=== PATIENT | male | born 1980 | race Caucasian/White ===

== ENCOUNTER 2023-08-12 17:03 | Emergency (ER) | payer OTHER, SELFPAY ==
[2023-08-12 17:05] VITALS: BP 138/105; PULSE 70; RESP 19; TEMP 36.6; O2SAT 95; BMI 39.9
[2023-08-12 17:12] VITALS: BP 138/105; PULSE 89; O2SAT 96
[2023-08-12 17:45] VITALS: BP 146/79; PULSE 81; O2SAT 95
--- NOTE | 2023-08-12 18:00 | ED_ITS ---
Discharge Plan Disposition Patient Disposition: Home, Self-Care Condition: Good Prescriptions Prescriptions: New cefuroxime axetil 500 mg tablet 500 mg PO BID 10 Days Qty: 20 0RF No Action cyclobenzaprine 10 MG tablet 10 mg PO TID PRN (Reason: Muscle Spasm) Qty: 9 0RF methylprednisolone [Medrol (Alejandro)] 4 MG tablets,dose pack 4 mg PO DIRECTED Qty: 21 0RF tamsulosin 0.4 MG capsule 0.4 mg PO HS Qty: 10 0RF hydrocodone-acetaminophen 1 TAB tablet 1 tab PO Q6HP PRN (Reason: Moderate To Severe Pain) Qty: 6 0RF Referrals Follow up/Referrals: Haresh Lopez [Primary Care Provider] - See instructions Activity Restrictions/Add. Instructions Additional Instructions/Restrictions: You were evaluated in the emergency department today. Please poultry picker your prescription for cefuroxime and take as prescribed. You will need to call Dr. Jarvis's office in the morning as soon as they open to be seen in the morning in clinic. Advise the office that he told you he would see you in the morning to determine whether or not you would need a stent placed tomorrow. . Do not eat or drink anything after midnight. He is only in clinic until 12pm tomorrow. Return to the emergency department for new or worsening symptoms. Clinical Impressions Clinical Impression: Left flank pain, Post-op pain, Ureterolithiasis Instructions Patient Instructions: DI for Kidney Stones, DI for Acute Pain -- Adult, DI for Ureterolithotomy Discharge ED Provider: Sailaja Pham General Adult HPI General Chief complaint: PAIN Stated complaint: back pain- surg to shock and stent kidney Time Seen by Provider: 08/12/23 17:11 Mode of Arrival: Ambulatory Source of Information: Patient Limitations: No Limitations Description of Symptoms (Recalled from ER Triage Doc. by RN): 43 yo M presents to ED with c/o back pain related to kidneys. pt had procedure done at [facility] to break up kidney stones yesterday. pt reports pain began this am when he woke up History of Present Illness HPI narrative: This patient is a 43-year-old male with a history of ureterolithiasis presenting to the emergency department for evaluation with concern for severe back/abdominal pain. Patient reports that yesterday, he had lithotripsy and stenting at [facility] for 20 mm kidney stones. He was discharged on oxycodone, but this morning he woke up in severe pain. He has not been able to get it under control. He is also had nausea and vomiting. No fevers, chills, or other concerns noted, but he does note difficulty urinating. Of note, he has solitary kidney. Related Data Previous Rx's Medication Instructions Recorded cyclobenzaprine 10 mg tablet 10 mg PO TID PRN Muscle Spasm #9 05/22/18 tabs methylprednisolone 4 mg tablets in 4 mg PO DIRECTED ##21 05/22/18 a dose pack (Medrol (Alejandro)) hydrocodone 5 mg-acetaminophen 325 1 tab PO Q6HP PRN Moderate To 06/11/18 mg tablet Severe Pain #6 tabs tamsulosin 0.4 mg capsule 0.4 mg PO HS #10 caps 06/11/18 cefuroxime axetil 500 mg tablet 500 mg PO BID 10 days #20 tabs 08/12/23 Allergies Allergy/AdvReac Type Severity Reaction Status Date / Time No Known Allergies Allergy Verified 05/22/18 15:57 [facility] Disclaimer: The information contained in this section may have been updated after the patient was seen, as this information can be updated by other users. Social History Smoking Status: Never smoker alcohol intake: never current occupational status: other Travel in the last 8 weeks: None ROS Obtained: Yes All systems reviewed & no additional complaints except as documented Physical Exam General General appearance: alert and in no apparent distress Head Head exam: atraumatic and normocephalic Eye Eye exam: Present normal appearance, PERRL and EOMI ENT ENT exam: Present normal exam, normal oropharynx, mucous membranes moist and normal external ear exam Neck Neck exam: Present normal inspection, full ROM and trachea midline; Absent tenderness Chest Chest inspection: Present normal inspection and symmetric chest wall rise; Absent tenderness Respiratory Respiratory exam: Present normal lung sounds bilaterally; Absent respiratory distress, wheezes, stridor or accessory muscle use Cardiovascular Cardiovascular exam: Present regular rate and normal rhythm Abdominal Exam Abdominal exam: Present soft, tenderness (Left-sided abdominal pain) and normal bowel sounds; Absent distention, guarding, rebound or rigidity Extremities Exam Extremities exam: Present normal inspection, full ROM and normal capillary refill; Absent tenderness or edema Back Exam Back exam: Present full ROM, tenderness and CVA tenderness (L) Neurological Exam Neurological exam: Present alert, oriented X3, CN II-XII intact and normal gait; Absent motor sensory deficit Psychiatric Psychiatric exam: Present normal affect and normal mood Skin Skin exam: Present warm and dry Medical Decision Making Medical Records Medical records reviewed: Yes I reviewed the patient's medical records. Nicholas Inquiry Pt receiving controlled substance: No Vital Signs: 08/12/23 17:05 08/12/23 17:12 08/12/23 17:45 Temperature 97.9 F Temperature Source Oral Pulse Rate 89 81 Pulse Rate [Left Radial] 70 Respiratory Rate 19 Blood Pressure 138/105 H 146/79 H Blood Pressure [Right Arm] 138/105 H Blood Pressure Mean [Right Arm] 116 Blood Pressure Source Blood Pressure Position 02 Sat by Pulse Oximetry 95 96 95 Oxygen Delivery Method Room Air Room Air 08/12/23 20:59 Temperature 98.1 F Temperature Source Oral Pulse Rate 83 Pulse Rate [Left Radial] Respiratory Rate 16 Blood Pressure 108/69 L Blood Pressure [Right Arm] Blood Pressure Mean [Right Arm] Blood Pressure Source Automatic Cuff Blood Pressure Position Supine 02 Sat by Pulse Oximetry Oxygen Delivery Method Room Air Lab Data Lab results reviewed: Yes I reviewed the patient's lab results. Lab Results 08/12/23 17:20: WBC 14.2 H, RBC 5.54, Hgb 15.3, Hct 44.5, MCV 80.5, MCH 27.6, MCHC 34.4, RDW 14.4, Plt Count 236, MPV 8.7, Neut % (Auto) 67.1, Lymph % (Auto) 25.0, Lares % (Auto) 5.6, Eos % (Auto) 1.5, Baso % (Auto) 0.8, Neut # (Auto) 9.5 H, Lymph # (Auto) 3.5, Lares # (Auto) 0.8, Eos # (Auto) 0.2, Baso # (Auto) 0.1, Sodium 142, Potassium 3.9, Chloride 108 H, Carbon Dioxide 23, Anion Gap 14.9, BUN 19, Creatinine 1.20, Estimated Creat Clear 140, Estimated GFR 66, Est GFR ( Amer) 80, Glucose 123 H, Calcium 9.0, Total Bilirubin 0.5, AST 38, ALT 58, Alkaline Phosphatase 115, Total Protein 7.3, Albumin 4.3, Globulin 3.0, Albumin/Globulin Ratio 1.4, Lipase 67 08/12/23 19:19: Urine Color Brown, Urine Appearance Cloudy, Urine pH 6.5, Ur Specific [place] 1.025, Urine Protein 3+, Urine Glucose (UA) Negative, Urine Ketones 1+, Urine Blood 3+, Urine Nitrate Positive, Urine Bilirubin Negative, Urine Urobilinogen 2.0, Ur Leukocyte Esterase 1+ A, Urine RBC Tntc, Urine WBC 10-20, Urine Bacteria Trace 08/12/23 17:20 08/12/23 17:20 Orders (Tests/Meds): ED MEDICATIONS Discontinued Medications Generic Name Dose Route Start Last Admin Trade Name Channingq PRN Reason Stop Dose Admin Lactated Ringer's 1,000 mls @ 999 mls/hr 08/12/23 17:33 08/12/23 18:20 Lactated Ringer's 1000 Ml Bag IV 08/12/23 18:33 999 mls/hr .Q1H1M ONE Administration Ceftriaxone Sodium 2 gm/ 100 mls @ 200 mls/hr 08/12/23 19:55 08/12/23 20:15 Sodium Chloride IV 08/12/23 20:24 200 mls/hr ONCE ONE Administration Ketorolac Tromethamine 30 mg 08/12/23 17:10 08/12/23 18:12 Ketorolac 30mg/Ml Vial IV 08/12/23 17:11 30 mg ONCE ONE Administration Morphine Sulfate 4 mg 08/12/23 17:33 08/12/23 18:13 Morphine 4mg/Ml Syringe IV 08/12/23 17:34 4 mg ONCE ONE Administration Ondansetron HCl 4 mg 08/12/23 17:33 08/12/23 18:12 Ondansetron 4mg/2ml Vial IV 08/12/23 17:34 4 mg ONCE ONE Administration ORDERS Category Date Time Status CT abdomen pelvis wo con Stat Cat Scan 08/12/23 18:24 Completed Complete Blood Count Auto Diff Stat Lab 08/12/23 17:20 Completed Comprehensive Metabolic Panel Stat Lab 08/12/23 17:20 Completed Lipase Stat Lab 08/12/23 17:20 Completed Urinalysis and Microscopic Stat Lab 08/12/23 19:19 Completed Blood Culture Stat Micro 08/12/23 20:50 Received Urine Culture Stat Micro 08/12/23 19:21 Received Medical Decision Narrative: In summary, this patient is a 43-year-old male presenting to the Emergency Department for evaluation of severe pain after recent stenting and lithotripsy yesterday at [facility]. Differential diagnoses considered include but are not limited to displacement, postoperative infection, ureteral colic, cystitis, pyelonephritis, sepsis. Ruling out the most morbid conditions drove assessment. On exam, the patient is very uncomfortable appearing and tearful. Vitals are reassuring on cardiac telemetry. He does have abdominal and CVA tenderness. CBC, CMP, lipase, urinalysis, urine culture, and CT abdomen and pelvis without IV contrast. He was given a bolus of IV fluids as well as IV morphine, Zofran, and Toradol for symptomatic improvement. I independently interpreted CT scan prior to the radiologist read and noted ureterolithiasis with mild hydronephr osis. Please see their read for final interpretation. Labs were obtained that demonstrated leukocytosis with normal kidney function. Urine is positive for nitrates, leukocyte esterase, and bacteria.. On reassessment, patient had good improvement after administration of interventions above. He is resting comfortably with reassuring vital signs on cardiac telemetry. Given concerns for possible infection, he was given IV Rocephin and blood cultures were obtained. I called and had an interactive discussion with his urologist, Dr. Jarvis, advised to have the patient not eat or drink after midnight, follow-up in his clinic in the morning to determine if he needs a stent, and to change his antibiotic to cefuroxime which was done. He was given strict return precautions and was discharged in stable condition with instructions to follow-up as mentioned. Critical Care Critical Care Time Critical Care Time: No
[2023-08-12] MEDS: ONDANSETRON 4MG/2ML VIAL 4 MG IV (18:12)
[2023-08-12] MEDS: KETOROLAC 30MG/ML VIAL 30 MG IV (18:12)
[2023-08-12] MEDS: MORPHINE 4MG/ML SYRINGE 4 MG IV (18:13)
[2023-08-12] MEDS: LACTATED RINGERS 1000ML 1,000 ML 999 ML IV (18:20)
--- NOTE | 2023-08-12 18:24 | CT_ITS ---
PROCEDURE INFORMATION: Exam: CT Abdomen And Pelvis Without Contrast Exam date and time: 08/12/2023 6:40 PM Age: 43 years old Clinical indication: Abdominal pain; Flank; Left; Prior surgery; Surgery date: 6+ months; Surgery type: Removal of right kidney; Additional info: Flank pain recent stone placement TECHNIQUE: Imaging protocol: Computed tomography of the abdomen and pelvis without contrast. Radiation optimization: All CT scans at this facility use at least one of these dose optimization techniques: automated exposure control; mA and/or kV adjustment per patient size (includes targeted exams where dose is matched to clinical indication); or iterative reconstruction. COMPARISON: [facility] CT abdomen pelvis wo con 06/11/2018 8:11 PM FINDINGS: Lungs: Mild atelectasis at the lung bases. Unchanged 3 mm noncalcified subpleural nodule in the lateral left lower lobe consistent with a benign nodule. Calcified granuloma in the lingula. Diaphragm: Small hiatal hernia. Liver: Hepatic steatosis with mild hepatomegaly. Gallbladder and bile ducts: Normal. No calcified stones. No ductal dilation. Pancreas: Normal. No ductal dilation. Spleen: Calcified granulomas in the spleen. No splenomegaly. Adrenal glands: Normal. No mass. Kidneys and ureters: Mild left hydronephrosis secondary to 6 mm and 3 mm calculi in the proximal ureter. Multiple left renal calyceal calculi measuring up to 12 mm. Severely atrophic right kidney is unchanged. Stomach and bowel: Unremarkable. No obstruction. No mucosal thickening. Appendix: No evidence of appendicitis. Intraperitoneal space: Unremarkable. No free air. No significant fluid collection. Vasculature: Unremarkable. No abdominal aortic aneurysm. Lymph nodes: Unremarkable. No enlarged lymph nodes. Urinary bladder: Unremarkable as visualized. Reproductive: Unremarkable as visualized. Bones/joints: Mild degenerative change of the lumbar spine and bilateral hips. Soft tissues: Bilateral gynecomastia. Small fat containing umbilical and right inguinal hernia. IMPRESSION: Mild left hydronephrosis secondary to 6 mm and 3 mm calculi in the proximal ureter.
[2023-08-12 18:46] LABS: Basophils # 0.1 K/mm3 (0-0.2); Basophils % 0.8 % (0.1-2.0); Eosinophils # 0.2 K/mm3 (0.0-0.4); Eosinophils % 1.5 % (0.1-12.0); Hematocrit 44.5 % (42.0-52.0); Hemoglobin 15.3 g/dL (14.1-18.0); Lymphocytes # 3.5 K/mm3 (0.7-4.5); Mean Corpuscular HGB Conc 34.4 g/dL (31.8-35.4); Mean Corpuscular Hemoglobin 27.6 pg (27.0-31.2); Mean Corpuscular Volume 80.5 fl (80-94); Mean Platelet Volume 8.7 fl (7.4-10.4); Monocytes # 0.8 K/mm3 (0.1-1.0); Monocytes % 5.6 % (1.7-9.3); Neutrophils # 9.5 K/mm3 (1.8-7.8); Neutrophils % 67.1 % (37.0-80.0); Platelet Count 236 K/mm3 (142-424); Red Blood Count 5.54 M/mm3 (4.60-6.20); Red Cell Distribution Width 14.4 % (11.5-17.5); White Blood Count 14.2 K/mm3 (4.8-10.8)
[2023-08-12 18:47] LABS: Chloride 108 mmol/L (98-107); Potassium 3.9 mmoL/L (3.5-5.1); Sodium 142 mmol/L (136-145)
[2023-08-12 18:50] LABS: Alanine Aminotransferase 58 U/L (12-78); Albumin Level 4.3 g/dl (3.5-5.0); Albumin/Globulin Ratio 1.4 (1.1-1.8); Alkaline Phosphatase 115 U/L (38-126); Anion Gap 14.9 mEq/L (5-15); Aspartate Amino Transferase 38 U/L (17-59); Bilirubin,Total 0.5 mg/dl (0.2-1.3); Blood Urea Nitrogen 19 mg/dl (9-20); Carbon Dioxide 23 mmol/L (22.0-30.0); Creatinine Clearance Estimated 140 mL/min (50-200); Estimated Glomerular Filt Rate 66 ml/min (>60); GFR (African American) 80 ML/MIN (>60); Glucose 123 mg/dl (74-100); Lipase 67 U/L (23-300); Total Protein,Serum 7.3 g/dl (6.3-8.2)
[2023-08-12 19:25] LABS: Microscopic, Urine URINE MICROSCOPIC (MICROSCOPIC)
[2023-08-12 19:30] VITALS: PULSE 83; RESP 18; O2SAT 95
--- NOTE | 2023-08-12 19:30 | PC.NURSE ---
PVR 25 mL
[2023-08-12 19:50] LABS: Appearance,Urine CLOUDY (Clear); Bilirubin,Urine Negative (Negative); Blood, Urine 3+ (Negative); Color,Urine BROWN (Yellow); Glucose,Urine (UA) Negative (Negative); Ketones,Urine 1+ (Negative); Leukocyte Esterase,Urine 1+ (Negative); Nitrate,Urine POSITIVE (Negative); PH,Urine 6.5 (5.0-8.5); Protein,Urine 3+ (Negative); Specific Gravity, Urine 1.025 (1.005-1.030)
--- NOTE | 2023-08-12 20:02 | PC.NURSE ---
Called [facility] transfer line for consult with Urology.
[2023-08-12 20:04] LABS: RBC,Urine TNTC #/hpf (0-3)
[2023-08-12 20:05] LABS: Bacteria,Urine Trace /lpf
[2023-08-12] MEDS: CEFTRIAXONE SODIUM 2 GM in 0.9 % SODIUM CHLORIDE 100 ML IV (20:15)
--- NOTE | 2023-08-12 20:53 | PC.NURSE ---
on phone with dr hutson
--- NOTE | 2023-08-12 20:53 | PC.NURSE ---
Dr Pham on phone with Dr Jarvis
[2023-08-12 20:57] VITALS: BP 108/69; PULSE 84; RESP 18; O2SAT 96
[2023-08-12 20:59] VITALS: BP 108/69; PULSE 83; RESP 16; TEMP 36.7; O2SAT 96
== END 2023-08-12 21:30 | disposition home or self-care (01) ==
PROVIDERS: Emergency Provider Emergency Medicine; PCP Pediatrics
DX: R10.9 Unspecified abdominal pain (principal); M54.9 Dorsalgia, unspecified; G89.18 Other acute postprocedural pain; R11.2 Nausea with vomiting, unspecified; N13.2 Hydronephrosis with renal and ureteral calculous obstruction; Y83.8 Other surgical procedures as the cause of abnormal reaction of the patient, or of later complication, without mention of misadventure at the time of the procedure
CPT/HCPCS: 36415; 74176; 80053; 81001; 83690; 85025; 87040; 87086; 96361; 96365; 96375; 99285; J0696; J2405

== ENCOUNTER 2024-02-01 18:10 | Emergency (ER) | payer OTHER, SELFPAY ==
--- NOTE | 2024-02-01 18:19 | XR_ITS ---
PROCEDURE INFORMATION: Exam: XR Right Ankle Exam date and time: 02/01/2024 6:23 PM Age: 43 years old Clinical indication: Injury or trauma; Fall; Blunt trauma; Ankle; Right; Additional info: Lateral sided pain from fall at 1pm today. Charcot disease TECHNIQUE: Imaging protocol: Radiologic exam of the right ankle. Views: 3 or more views. COMPARISON: [facility] Foot R 02/01/2024 6:21 PM FINDINGS: Bones/joints: No evidence of acute fracture or malalignment. Ankle mortise appears intact. Soft tissues: Unremarkable. IMPRESSION: No evidence of acute osseous abnormality in the right ankle.
--- NOTE | 2024-02-01 18:19 | XR_ITS ---
PROCEDURE INFORMATION: Exam: XR Right Foot Exam date and time: 02/01/2024 6:21 PM Age: 43 years old Clinical indication: Injury or trauma; Fall; Blunt trauma; Foot; Right; Additional info: Lateral sided pain from fall at 1pm today. Charcot disease TECHNIQUE: Imaging protocol: Radiologic exam of the right foot. Views: 3 or more views. COMPARISON: No relevant prior studies available. FINDINGS: Bones/joints: Chronic post-traumatic degenerative changes in the proximal 4th and 5th metatarsals. No evidence of acute fracture. Lisfranc joint alignment appears normal in these non-weightbearing radiographs. Pes cavus deformity. Soft tissues: Unremarkable. IMPRESSION: 1. No evidence of acute osseous abnormality in the right foot. 2. Pes cavus deformity.
[2024-02-01 18:30] VITALS: BP 130/77; PULSE 89; RESP 20; TEMP 36.7; O2SAT 97; BMI 37.8
--- NOTE | 2024-02-01 19:09 | ED_ITS ---
Discharge Plan Disposition Patient Disposition: Home, Self-Care Prescriptions Prescriptions: No Action chlorthalidone 25 mg tablet 25 mg PO DAILY allopurinol 300 mg tablet 300 mg PO DAILY Referrals Follow up/Referrals: Chava Lopez II, MD [Primary Care Provider] - See instructions Activity Restrictions/Add. Instructions Additional Instructions/Restrictions: *weight bearing as tolerated *RICE, Rest the extremity, Ice 15-20 minutes 3-4 times daily, Compress- wear the miguel wrap as discussed as much as possible to help reduce swelling and pain, Elevate the extremity when at rest *Miguel wrap is for support and help control swelling, use it except in the shower. Be sure that is not to tight but not to loose either *Elevate when resting? *Ibuprofen 600-800mg every 6-8 hours as needed for pain an inflammation. If need something more can take Tylenol in between doses of Ibuprofen to help Immediately follow up with your family doctor for new or worsening of symptoms, or no noticeable improvement over the next 3-5 days Clinical Impressions Clinical Impression: Contusion of foot, Ankle sprain Instructions Patient Instructions: DI for Ankle Sprain, How To Perform RICE (Rest, Ice, Compress, Elevate), How to Apply an Miguel Wrap Discharge ED Provider: Leonora Lee [facility] HPI General Stated complaint: AO01/31 fall RT leg inj Mode of Arrival: Ambulatory Source of Information: Patient Limitations: No Limitations Time Seen by Provider: 02/01/24 19:09 Description of Symptoms (Recalled from Triage Doc. by RN): PATIENT C/O RIGHT ANKLE AND FOOT PAIN AFTER FALLING DOWN 3 STEPS THIS AFTERNOON HEENT Symptoms (Recalled from RN notes): No Resp Symptoms (Recalled from RN notes): No Skin Symptoms (Recalled from RN notes): No MS Symptoms (Recalled from RN notes): Yes Functional Status (Recalled from RN notes): WNL History of Present Illness Provider Complaint: Patient states that he has bad balance and he was walking down the steps and slipped and fell and twisted his right foot and ankle States since he has been having pain in his ankle and foot so he came in to get checked Related Data Home Medications Medication Instructions Recorded Confirmed allopurinol 300 mg tablet 300 mg PO DAILY 02/01/24 02/01/24 chlorthalidone 25 mg tablet 25 mg PO DAILY 07/16/24 07/16/24 Allergies Allergy/AdvReac Type Severity Reaction Status Date / Time No Known Allergies Allergy Verified 05/22/18 15:57 Worker's Comp Is this a Worker's Comp case?: No [facility] Disclaimer: The information contained in this section may have been updated after the patient was seen, as this information can be updated by other users. Medical History (Updated 02/01/24 @ 19:40 by Leonora Lee APRN) CMT (Volaqgs-Obdtb-Qzcdm disease) Kidney stone Social History Smoking Status: Never smoker alcohol intake: never current occupational status: other Travel in the last 8 weeks: None ROS Obtained: Yes All systems reviewed & no additional complaints except as documented and Yes Systems reviewed as appropriate & no additional complaints except as documented Constitutional Constitutional: Reports system reviewed and no additional complaints, except as documented and Reports as per HPI ENT Ears, Nose, Mouth, and Throat: Reports system reviewed and no additional complaints, except as documented and Reports as per HPI Cardiovascular Cardiovascular: Reports system reviewed and no additional complaints, except as documented and Reports as per HPI Respiratory Respiratory: Reports system reviewed and no additional complaints, except as documented and Reports as per HPI Musculoskeletal Musculoskeletal: Reports system reviewed and no additional complaints, except as documented, Reports as per HPI and Reports other Comments: Pain in right foot and ankle after falling on the steps at home and twisting foot and ankle Physical Exam General General appearance: alert and in no apparent distress ENT ENT exam: Present mucous membranes moist Respiratory Respiratory exam: Present normal lung sounds bilaterally; Absent respiratory distress or wheezes Cardiovascular Cardiovascular exam: Present regular rate, normal rhythm and normal heart sounds Expanded Lower Extremity Exam Right: Ankle image: 2 1. reports tenderness with palpation, no bruising noted at this time Neurological Exam Neurological exam: Present alert, oriented X3 and normal gait Medical Decision Making Nicholas Inquiry Pt receiving controlled substance: No Nicholas was queried for this patient: No Vital Signs: 02/01/24 18:30 Temperature 98.0 F Temperature Source Oral Pulse Rate [Left Brachial] 89 Respiratory Rate 20 Blood Pressure [Left Arm] 130/77 Blood Pressure Mean [Left Arm] 94 Blood Pressure Source [Left Arm] Automatic Cuff Blood Pressure Position [Left Arm] Sitting 02 Sat by Pulse Oximetry 97 Oxygen Delivery Method Room Air Orders (Tests/Meds): ORDERS Category Date Time Status XR ankle RT min 3V Stat Exams 02/01/24 18:19 Taken XR foot RT min 3V Stat Exams 02/01/24 18:19 Taken Radiology Data #1: Image(s): Ankle Image Reviewed: Yes I have reviewed radiologist's interpretation IMPRESSION: No evidence of acute osseous abnormality in the right ankle. #2: Image(s): Foot/Toes Image Reviewed: Yes I have reviewed radiologist's interpretation IMPRESSION: 1. No evidence of acute osseous abnormality in the right foot. 2. Pes cavus deformity.
[2024-02-01 19:45] VITALS: BP 130/77; PULSE 89; RESP 20; TEMP 36.7; O2SAT 97
== END 2024-02-01 19:47 | disposition home or self-care (01) ==
PROVIDERS: Emergency Provider Nurse Practitioner; PCP Radiology Radiation Oncology
DX: S93.401A Sprain of unspecified ligament of right ankle, initial encounter (principal); S90.31XA Contusion of right foot, initial encounter; W10.8XXA Fall (on) (from) other stairs and steps, initial encounter; M25.571 Pain in right ankle and joints of right foot
CPT/HCPCS: 73610; 73630; 99212; 99213; G0463

== ENCOUNTER 2024-04-16 18:54 | Emergency (ER) | payer OTHER, SELFPAY ==
[2024-04-16 18:55] VITALS: BP 131/77; PULSE 112; RESP 18; TEMP 36.9; O2SAT 95; BMI 38.0
--- NOTE | 2024-04-16 19:01 | ED_ITS ---
Discharge Plan Disposition Patient Disposition: Home, Self-Care Condition: Good Prescriptions Prescriptions: New sulfamethoxazole-trimethoprim [Bactrim DS] 800-160 mg tablet 1 tab PO BID 10 Days Qty: 20 0RF No Action chlorthalidone 25 mg tablet 25 mg PO DAILY allopurinol 300 mg tablet 300 mg PO DAILY Referrals Follow up/Referrals: Roni Delgado MD [Staff Physician] - See instructions (Pilonidal cyst) Haresh Lopez [Primary Care Provider] - See instructions Activity Restrictions/Add. Instructions Additional Instructions/Restrictions: Please call and make an appointment with general surgery in the morning. Please take all your antibiotics till gone. Return to ER for any worsening signs or symptoms as needed. Clinical Impressions Clinical Impression: Cyst, pilonidal, with abscess Instructions Patient Instructions: DI for Pilonidal Cyst Drainage or Removal Print Language Print Language: Citizen Of [place] Discharge ED Provider: Ty Jin General Adult HPI <LISE Mercer - Last Filed: 04/16/24 19:37> General Chief complaint: Skin/Abscess/Foreign Body Stated complaint: Spot on tail bone that needs to be lanced Time Seen by Provider: 04/16/24 19:01 History of Present Illness HPI narrative: Patient presents for evaluation of a pilonidal cyst. 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 It is located at the top of the cleft on the left. He has never been referred for excision. He denies any fever chills hemoptysis hematochezia melena nausea vomit diarrhea. Related Data Home Medications ?Medication ?Instructions ?Recorded ?Confirmed allopurinol 300 mg tablet 300 mg PO DAILY 02/01/24 02/01/24 chlorthalidone 25 mg tablet 25 mg PO DAILY 02/01/24 02/01/24 Previous Rx's ?Medication ?Instructions ?Recorded sulfamethoxazole 800 1 tab PO BID 10 days #20 tabs 04/16/24 mg-trimethoprim 160 mg tablet (Bactrim DS) Allergies Allergy/AdvReac Type Severity Reaction Status Date / Time No Known Allergies Allergy Verified 05/22/18 15:57 PFS <LISE Mercer - Last Filed: 04/16/24 19:37> [facility] Disclaimer: The information contained in this section may have been updated after the patient was seen, as this information can be updated by other users. Medical History (Updated 04/16/24 @ 19:29 by LISE Mercer) CMT (Fqmgvlf-Dacag-Zrjoy disease) Kidney stone Social History Smoking Status: Never smoker alcohol intake: never current occupational status: other Travel in the last 8 weeks: None <LISE Mercer - Last Filed: 04/16/24 19:37> ROS Obtained: Yes Systems reviewed as appropriate & no additional complaints except as documented Physical Exam <LISE Mercer - Last Filed: 04/16/24 19:37> General General appearance: alert and in no apparent distress Respiratory Respiratory exam: Present normal lung sounds bilaterally Cardiovascular Cardiovascular exam: Present regular rate Neurological Exam Neurological exam: Present alert and oriented X3 Medical Decision Making <LISE Mercer - Last Filed: 04/16/24 19:37> Medical Records Screening: Per USPSTF and CDC recommendations, given the prevalence of disease in our region, it is our hospital?s policy to screen for HIV and viral Hepatitis for all patients aged 18 and over and those with ongoing risk factors. Nicholas Inquiry Pt receiving controlled substance: No Vital Signs: 04/16/24 18:55 04/16/24 19:47 Temperature 98.5 F 98.4 F Temperature Source Oral Oral Pulse Rate 88 Pulse Rate [Right] 112 H Respiratory Rate 18 18 Blood Pressure 128/72 Blood Pressure [Right Arm] 131/77 Blood Pressure Mean [Right Arm] 95 02 Sat by Pulse Oximetry 95 Oxygen Delivery Method Room Air Orders (Tests/Meds): ED MEDICATIONS Discontinued Medications Generic Name Dose Route Start Last Admin Trade Name Freq PRN Reason Stop Dose Admin Lidocaine HCl 10 ml 04/16/24 19:03 04/16/24 19:11 Lidocaine 1% 10ml Mdv SQ 04/16/24 19:04 10 ml ONCE ONE Administration Trimethoprim/Sulfamethoxazole 1 each 04/16/24 19:03 04/16/24 19:12 Sulfa/Trimethoprim 1 Tablet PO 04/16/24 19:04 1 each ONCE ONE Administration ORDERS Category Date Time Status Wound Culture and Gram Stain Routine Micro 04/16/24 19:15 Results Medical Decision Narrative: In summary patient is a 43-year-old male who presents to the emergency department for evaluation of pilonidal cyst. Patient is hemodynamically stable upon arrival, afebrile. Physical exam is remarkable for an abscess at the left side of the top of the gaudencio cleft that has a central area of pointing along with edema erythema and induration additionally more inferiorly patient has an actually open pilonidal cyst it is not covered by skin with hairs growing out of it... Differential diagnosis alternate to pilonidal cyst could be simple abscess but patient has known quantity and a known pilonidal cyst along with his visible anatomy no other diagnosis is needed. Given this patient was prepped and draped sterilely and under local anesthesia utilizing an 11 blade the cyst was incised with immediate return of approximately 5 cc of hemopurulent debris. Wound edges packed open with a 1 inch plain gauze and then dressing applied after wound culture. Patient will be referred to general surgery. Patient given prescription for Bactrim with first dose given here. Patient given strict return precautions. <Ty Jin MD - Last Filed: 04/16/24 22:09> Vital Signs: 04/16/24 18:55 04/16/24 19:47 Temperature 98.5 F 98.4 F Temperature Source Oral Oral Pulse Rate 88 Pulse Rate [Right] 112 H Respiratory Rate 18 18 Blood Pressure 128/72 Blood Pressure [Right Arm] 131/77 Blood Pressure Mean [Right Arm] 95 02 Sat by Pulse Oximetry 95 Oxygen Delivery Method Room Air Orders (Tests/Meds): ED MEDICATIONS Discontinued Medications Generic Name Dose Route Start Last Admin Trade Name Freq PRN Reason Stop Dose Admin Lidocaine HCl 10 ml 04/16/24 19:03 04/16/24 19:11 Lidocaine 1% 10ml Mdv SQ 04/16/24 19:04 10 ml ONCE ONE Administration Trimethoprim/Sulfamethoxazole 1 each 04/16/24 19:03 04/16/24 19:12 Sulfa/Trimethoprim 1 Tablet PO 04/16/24 19:04 1 each ONCE ONE Administration ORDERS Category Date Time Status Wound Culture and Gram Stain Routine Micro 04/16/24 19:15 Results Medical Decision Narrative: In summary patient is a 43-year-old male who presents to the emergency department for evaluation of pilonidal cyst. Patient is hemodynamically stable upon arrival, afebrile. Physical exam is remarkable for an abscess at the left side of the top of the gaudencio cleft that has a central area of pointing along with edema erythema and induration additionally more inferiorly patient has an actually open pilonidal cyst it is not covered by skin with hairs growing out of it... Differential diagnosis alternate to pilonidal cyst could be simple abscess but patient has known quantity and a known pilonidal cyst along with his visible anatomy no other diagnosis is needed. Given this patient was prepped and draped sterilely and under local anesthesia utilizing an 11 blade the cyst was incised with immediate return of approximately 5 cc of hemopurulent debris. Wound edges packed open with a 1 inch plain gauze and then dressing applied after wound culture. Patient will be referred to general surgery. Patient given prescription for Bactrim with first dose given here. Patient given strict return precautions. I was consulted by the CYDNEY, and we discussed the complexity of the problems being addressed. I approved the treatment and management plan for this patient's care in the Emergency Department, thus performing a substantive portion of the medical decision making. Ty Jin MD Procedures <LISE Mercer - Last Filed: 04/16/24 19:37> Abscess I/D Site: other (Gaudencio cleft) Side (if applicable): left Local Anesthetic: lidocaine 1% Amount of anesthesia used (mL): 10 Technique: incised with #11 blade Amount of fluid expressed (mL): 5 Irrigation: No Packing used?: plain Critical Care <LISE Mercer - Last Filed: 04/16/24 19:37> Critical Care Time Critical Care Time: No
[2024-04-16] MEDS: LIDOCAINE 1% 10ML MDV 10 ML SQ (19:11)
[2024-04-16] MEDS: SULFA/TRIMETHOPRIM 1 TABLET 1 EACH PO (19:12)
[2024-04-16 19:47] VITALS: BP 128/72; PULSE 88; RESP 18; TEMP 36.9; O2SAT 95
--- NOTE | 2024-04-22 08:36 | PC.NURSE ---
Reviewed wound culture results with Dr. Pham. She sent in Clindamycin in addition to his initial abx. Called pt and reviewed information with him and let him know Clindamycin was sent to his pharmacy, [facility]. He stated his understanding.
== END 2024-04-16 19:50 | disposition home or self-care (01) ==
PROVIDERS: Emergency Provider Emergency Medicine; PCP Pediatrics
DX: L05.01 Pilonidal cyst with abscess (principal); B95.7 Other staphylococcus as the cause of diseases classified elsewhere
CPT/HCPCS: 11771; 87070; 87077; 87186; 87205; 99283

== ENCOUNTER 2024-06-17 15:24 | Emergency (ER) | payer OTHER, SELFPAY ==
[2024-06-17] VITALS (8 sets, daily range): BP systolic 110–149; BP diastolic 66–82; PULSE 76–100; RESP 17–29; TEMP 36.8; O2SAT 92–98; BMI 39.4
--- NOTE | 2024-06-17 15:22 | ECG_ITS ---
APPROVED REPORT Exam: Resting ECG HR:95 bpm ECG Measurements Heart Rate 95 AXES WY 139 P 56 QRSd 94 QRS 51 QT 338 T 39 QTc 391 Conclusion SINUS RHYTHM NORMAL ECG Electronically signed by : RAIMUNDO REYES, 06/17/2024 17:24:52
--- NOTE | 2024-06-17 15:35 | XR_ITS ---
PROCEDURE INFORMATION: Exam: XR Chest Exam date and time: 06/17/2024 3:34 PM Age: 43 years old Clinical indication: Pain; Shortness of breath; Left-sided; Additional info: L chest pain TECHNIQUE: Imaging protocol: Radiologic exam of the chest. Views: 1 view. COMPARISON: CT ABDOMEN PELVIS WO CON 08/12/2023 6:40 PM FINDINGS: Lungs: Hyperexpanded lung sandoval consistent with COPD. Wedge-shaped consolidation in the medial right base may represent atelectasis or pneumonia Pleural spaces: Unremarkable. No pleural effusion. No pneumothorax. Heart/Mediastinum: Unremarkable. No cardiomegaly. Bones/joints: Unremarkable. IMPRESSION: Wedge-shaped consolidation in the medial right base may represent atelectasis or pneumonia
--- NOTE | 2024-06-17 15:36 | [facility].EDCP ---
Discharge Plan Disposition Patient Disposition: Home, Self-Care Chief Complaint: Chest Pain Prescriptions Prescriptions: No Action sulfamethoxazole-trimethoprim [Bactrim DS] 800-160 mg tablet 1 tab PO BID 10 Days Qty: 20 0RF clindamycin HCl 300 mg capsule 300 mg PO Q8H 10 Days Qty: 30 0RF Referrals Follow up/Referrals: Provider,MD Sg [Referring] - See instructions Anatoliy Chau MD [Staff Physician] - See instructions Activity Restrictions/Add. Instructions Additional Instructions/Restrictions: At this time it was felt you are safe to be discharged home. If new or worsening symptoms please do not hesitate to return the emergency department. Please call and schedule appoint with Dr. Chau as soon as you are able. Clinical Impressions Clinical Impression: Chest pain Print Language Print Language: Upper Sorbian Discharge ED Provider: Lawrence Terry General Chief Complaint: Chest Pain Stated Complaint: Chest Pain Time Seen by Provider: 06/17/24 15:26 Mode of Arrival: Ambulatory Source of Information: Patient Limitations: No Limitations Description of Symptoms (Recalled from ER Triage Doc. by RN): pt states he has chest pains since yesterday that feels fluttery and squeezy, soa and left sided chest, pt states he only has one kidney History of Present Illness HPI narrative: Patient is a 43-year-old male with no pertinent past medical history presents emergency department for evaluation of chest pain. Onset was acute, left-sided intermittent occurring since yesterday morning. It is not modifiable. It radiates from his left chest into his shoulder, does not go through to his back. No trauma. No other acute complaints at this time. Related Data Previous Rx's ?Medication ?Instructions ?Recorded sulfamethoxazole 800 1 tab PO BID 10 days #20 tabs 04/16/24 mg-trimethoprim 160 mg tablet (Bactrim DS) clindamycin HCl 300 mg capsule 300 mg PO Q8H 10 days #30 caps 04/22/24 Allergies Allergy/AdvReac Type Severity Reaction Status Date / Time No Known Allergies Allergy Verified 04/18/24 10:07 [facility] Disclaimer: The information contained in this section may have been updated after the patient was seen, as this information can be updated by other users. Medical History (Updated 06/17/24 @ 17:49 by Lawrence Terry MD) CMT (Endweuv-Tvomu-Opxky disease) Kidney stone Surgical History (Updated 04/18/24 @ 10:08 by KENDRICK Quach) History of colonoscopy Social History Smoking Status: Never smoker alcohol intake: never current occupational status: other Other Medical History Have you received the Flu Vaccine for this season: No ROS Obtained: Yes Systems reviewed as appropriate & no additional complaints except as documented Physical Exam General General appearance: alert and in no apparent distress Head Head exam: atraumatic and normocephalic Eye Eye exam: Present PERRL ENT ENT exam: Present mucous membranes moist Neck Neck exam: Present normal inspection Chest Chest inspection: Present normal inspection and symmetric chest wall rise Respiratory Respiratory exam: Present normal lung sounds bilaterally; Absent respiratory distress Cardiovascular Cardiovascular exam: Present regular rate and normal rhythm Abdominal Exam Abdominal exam: Present soft; Absent tenderness Extremities Exam Extremities exam: Present normal inspection and other (Palpable bilateral radial pulses) Neurological Exam Neurological exam: Present alert Psychiatric Psychiatric exam: Present normal affect Skin Skin exam: Present warm and dry HEART Score HEART Score HEART Score assessment performed?: Yes History (anamnesis): Moderately suspicious ECG: Normal Age: <45 years Risk factors: No known risk factors Troponin: </= normal limit HEART Score: 1 Critical Care Critical Care Time Critical Care Time: No Medical Decision Making Nicholas Inquiry Pt receiving controlled substance: No Vital Signs Vital Signs: 06/17/24 15:24 06/17/24 15:33 06/17/24 15:38 Temperature 98.2 F Temperature Source Oral Pulse Rate 87 90 Pulse Rate [Right Radial] 100 H Respiratory Rate 18 17 Blood Pressure 149/82 H Blood Pressure [Right Arm] 149/80 H Blood Pressure Mean Blood Pressure Mean [Right Arm] 103 02 Sat by Pulse Oximetry 98 95 Oxygen Delivery Method Room Air Room Air 06/17/24 16:00 06/17/24 16:30 06/17/24 17:00 Temperature Temperature Source Pulse Rate 84 86 82 Pulse Rate [Right Radial] Respiratory Rate 18 20 29 H Blood Pressure 123/70 125/70 121/69 Blood Pressure [Right Arm] Blood Pressure Mean 87 87 Blood Pressure Mean [Right Arm] 02 Sat by Pulse Oximetry 96 92 L 95 Oxygen Delivery Method Room Air 06/17/24 17:30 Temperature Temperature Source Pulse Rate 76 Pulse Rate [Right Radial] Respiratory Rate 26 H Blood Pressure 110/66 Blood Pressure [Right Arm] Blood Pressure Mean Blood Pressure Mean [Right Arm] 02 Sat by Pulse Oximetry 95 Oxygen Delivery Method Room Air Lab Data Labs: Lab Results 06/17/24 15:20: WBC 8.8, RBC 5.65, Hgb 15.2, Hct 45.8, MCV 81.1, MCH 26.9 L, MCHC 33.2, RDW 13.2, Plt Count 248, MPV 11.2 H, Neut % (Auto) 57.5, Lymph % (Auto) 30.7, Mercer % (Auto) 7.6, Eos % (Auto) 3.2, Baso % (Auto) 0.7, Neut # (Auto) 5.0, Lymph # (Auto) 2.7, Mercer # (Auto) 0.7, Eos # (Auto) 0.3, Baso # (Auto) 0.1, D-Dimer 0.35, Sodium 141, Potassium 4.0, Chloride 111 H, Carbon Dioxide 23, Anion Gap 11.0, BUN 15, Creatinine 0.90, Estimated Creat Clear 185, Estimated GFR 92, Est GFR ( Amer) 111, Glucose 157 H, Calcium 9.1, Total Bilirubin 0.8, AST 36, ALT 47, Alkaline Phosphatase 103, Troponin I < 0.01, Total Protein 7.2, Albumin 4.3, Globulin 2.9, Albumin/Globulin Ratio 1.5 06/17/24 17:00: Troponin I < 0.01 06/17/24 15:20 06/17/24 15:20 Response Orders (Tests/Meds): ED MEDICATIONS Discontinued Medications Generic Name Dose Route Start Last Admin Trade Name Channingq PRN Reason Stop Dose Admin Acetaminophen 1,000 mg 06/17/24 15:34 06/17/24 15:43 Acetaminophen 500mg Tab PO 06/17/24 15:35 1,000 mg ONCE ONE Administration Aspirin 324 mg 06/17/24 15:34 06/17/24 15:42 Aspirin 81mg Chewable Tablet PO 06/17/24 15:35 324 mg ONCE ONE Administration Belladonna Alkaloids 60 ml 06/17/24 15:34 06/17/24 15:43 Belladonna Alkaloids 60 Ml Ml PO 06/17/24 15:35 60 ml ONCE ONE Administration ORDERS Category Date Time Status CXR --portable [XR chest portable] Stat Exams 06/17/24 15:35 Completed CBC w/Auto Diff [Complete Blood Count Auto Diff] Stat Lab 06/17/24 15:20 Completed CMP [Comprehensive Metabolic Panel] Stat Lab 06/17/24 15:20 Completed D-Dimer Stat Lab 06/17/24 15:20 Completed Trop I [Troponin I] Stat Lab 06/17/24 15:20 Completed Troponin I Q3H Lab 06/17/24 17:00 Completed Troponin I Q3H Lab 06/17/24 21:45 Ordered ECG Data Tracing #1: ECG Narrative: Independently interpreted by me rate is 95, rhythm is regular, axis is normal, no ST elevation in anatomical contiguous leads. QTc 391 MDM Narrative Medical Decision Narrative: In summary patient 43-year-old male past medical history described above presents emergency department for evaluation of chest pain. Patient is hemodynamically stable nontoxic-appearing upon arrival, afebrile. Differential diagnosis includes ACS, pulmonary embolism, noncardiac chest pain, among others. Workup we conducted with hematologic labs, chest x-ray, EKG, serial troponins, D-dimer. Initial inventions include aspirin, Tylenol. Initial workup reviewed by me, hematologic labs are nonactionable, no leukocytosis no PORTIA or critical electrolyte abnormality initial troponin undetectably low. Chest x-ray informally interpreted by me and no large pneumothorax. Formal read shows wedge-shaped consolidation right medial base which may represent atelectasis or pneumonia. Given that he does not have any significant cough or shortness of breath I suspect atelectasis. D-dimer excludes pulmonary embolism and low risk dissection per decision rules. Upon repeat evaluation patient was resting comfortably in bed pending second troponin. The patient was placed in observation status at 4:46 PM. Medical necessity for observational status is serial troponins. The patient was provided serial reevaluations and cardiac monitoring while awaiting results. Results of testing during observation remarkable for serial undetectable troponins. Upon repeat assessment patient was resting comfortably in bed and is appropriate for discharge at this time. Patient will be discharged with cardiology follow-up and was given return precautions.
[2024-06-17] MEDS: ASPIRIN 81MG CHEWABLE TABLET 324 MG PO (15:42)
[2024-06-17] MEDS: ACETAMINOPHEN 500MG TAB 1000 MG PO (15:43)
[2024-06-17] MEDS: BELLADONNA ALKALOIDS 60 ML ML PO (15:43)
[2024-06-17 15:45] LABS: Albumin Level 4.3 g/dl (3.5-5.0); Chloride 111 mmol/L (98-107); Sodium 141 mmol/L (136-145)
[2024-06-17 15:47] LABS: Blood Urea Nitrogen 15 mg/dl (9-20); Creatinine Clearance Estimated 185 mL/min (50-200); Estimated Glomerular Filt Rate 92 ml/min (>60); GFR (African American) 111 ML/MIN (>60)
[2024-06-17 15:48] LABS: Alanine Aminotransferase 47 U/L (12-78); Albumin/Globulin Ratio 1.5 (1.1-1.8); Alkaline Phosphatase 103 U/L (38-126); Aspartate Amino Transferase 36 U/L (17-59); Bilirubin,Total 0.8 mg/dl (0.2-1.3); Calcium 9.1 mg/dl (8.4-10.2); Carbon Dioxide 23 mmol/L (22.0-30.0); Globulin 2.9 g/dL (1.3-3.2); Glucose 157 mg/dl (74-100); Total Protein,Serum 7.2 g/dl (6.3-8.2)
[2024-06-17 16:03] LABS: Troponin I < 0.01 ng/ml (0.00-0.034)
[2024-06-17 16:05] LABS: D-Dimer 0.35 ug/mL (0.0-0.5); Hematocrit 45.8 % (42.0-52.0); Hemoglobin 15.2 g/dL (14.1-18.0); Mean Corpuscular HGB Conc 33.2 g/dL (31.8-35.4); Mean Corpuscular Hemoglobin 26.9 pg (27.0-31.2); Mean Corpuscular Volume 81.1 fl (80-94); Red Blood Count 5.65 M/mm3 (4.60-6.20); White Blood Count 8.8 K/mm3 (4.8-10.8)
[2024-06-17 16:06] LABS: Basophils # 0.1 K/mm3 (0-0.2); Basophils % 0.7 % (0.1-2.0); Eosinophils # 0.3 K/mm3 (0.0-0.4); Eosinophils % 3.2 % (0.1-12.0); Lymphocytes # 2.7 K/mm3 (0.7-4.5); Lymphocytes % 30.7 % (10-50); Mean Platelet Volume 11.2 fl (7.4-10.4); Monocytes # 0.7 K/mm3 (0.1-1.0); Monocytes % 7.6 % (1.7-9.3); Neutrophils % 57.5 % (37.0-80.0); Platelet Count 248 K/mm3 (142-424); Red Cell Distribution Width 13.2 % (11.5-17.5)
[2024-06-17 17:39] LABS: Troponin I < 0.01 ng/ml (0.00-0.034)
== END 2024-06-17 17:58 | disposition home or self-care (01) ==
PROVIDERS: Emergency Provider Emergency Medicine; PCP Pediatrics
DX: R07.9 Chest pain, unspecified (principal); R06.02 Shortness of breath
CPT/HCPCS: 71045; 80053; 84484; 85025; 85378; 93005; 99284

== ENCOUNTER 2024-08-14 17:31 | Emergency (ER) | payer OTHER, SELFPAY ==
[2024-08-14 17:40] VITALS: BP 122/85; PULSE 109; RESP 18; TEMP 37.9; O2SAT 97; BMI 36.6
[2024-08-14 18:00] LABS: UTC Influenza A Antigen Positive (Negative); UTC Strep Screen (Rapid) Negative (Negative)
--- NOTE | 2024-08-14 18:00 | ED_ITS ---
Discharge Plan Disposition Patient Disposition: Home, Self-Care Condition: Good Prescriptions Prescriptions: New oseltamivir [Tamiflu] 75 mg capsule 75 mg PO Q12H 5 Days Qty: 10 0RF Referrals Follow up/Referrals: Haresh Lopez [Primary Care Provider] - See instructions Activity Restrictions/Add. Instructions Additional Instructions/Restrictions: * Start Tamiflu today if you are going to take it. Discussed risk and possible benefits. * Lots of rest * Increase Fluids water, Gatorade, powerade, pedialyte,if infant/toddler/child * Alternate Tylenol and / or ibuprofen as discussed for fever, aches, chills Follow up IMMEDIATELY with your family doctor for new or worsening Symptoms OR no noticeable improvement over the next 48-72 hours, 911 for difficulty or breathing * You or your child area contagious until no fever, aches, chills for 24 hours with medication for symptoms * Help Prevent the spread of influenza: * ?Wash your hands often. Use soap and water. Wash your hands after you use the bathroom, change a child's diapers, or sneeze. Wash your hands before you prepare or eat food. Use gel hand cleanser that has 60% alcohol, when soap and water are not available. Do not touch your eyes, nose, or mouth unless you have washed your hands first. * Cover your mouth when you sneeze or cough. Cough into a tissue or the bend of your arm. If you use a tissue, throw it away immediately and wash your hands. * Clean shared items with a germ-killing stove cleaner. Clean table surfaces, doorknobs, and light switches. Do not share towels, silverware, and dishes with people who are sick. Wash bed sheets, towels, silverware, and dishes with soap and water. * Wear a mask over your mouth and nose if you are sick. The face mask may help protect others from becoming infected with the flu. Wear the mask when in common areas of your home or if you seek care with a healthcare provider. * Stay away from others if you are sick. Stay at home until 24 hours after your fever and symptoms are gone. Clinical Impressions Clinical Impression: Influenza Stand Alone Forms Stand Alone Forms: Work/School Release Instructions Patient Instructions: DI for Influenza -- Adult, Oseltamivir Print Language Print Language: Slovenian Discharge ED Provider: Leonora Lee [facility] HPI General Stated complaint: sore throat, body aches Mode of Arrival: Ambulatory Source of Information: Patient Limitations: No Limitations Time Seen by Provider: 08/14/24 18:00 Description of Symptoms (Recalled from Triage Doc. by RN): PATIENT C/O SORE THROAT, DRAINAGE, COUGH, AND BODY ACHES SINCE YESTERDAY HEENT Symptoms (Recalled from RN notes): Yes Resp Symptoms (Recalled from RN notes): Yes Skin Symptoms (Recalled from RN notes): No MS Symptoms (Recalled from RN notes): No Functional Status (Recalled from RN notes): WNL History of Present Illness Provider Complaint: Patient states that he started feeling bad yesterday with body aches, chills, sore throat, sinus congestion drainage and cough States today he was feeling worse so he came in States that several people at work has been sick Related Data Previous Rx's ?Medication ?Instructions ?Recorded oseltamivir 75 mg capsule (Tamiflu) 75 mg PO Q12H 5 days #10 caps 08/14/24 Allergies Allergy/AdvReac Type Severity Reaction Status Date / Time No Known Allergies Allergy Verified 04/18/24 10:07 Worker's Comp Is this a Worker's Comp case?: No [facility] Disclaimer: The information contained in this section may have been updated after the patient was seen, as this information can be updated by other users. Medical History (Updated 08/14/24 @ 18:06 by Leonora Lee APRN) CMT (Mrxmxfe-Dztfq-Kczhn disease) Kidney stone Surgical History (Updated 04/18/24 @ 10:08 by KENDRICK Quach) History of colonoscopy Social History Smoking Status: Never smoker alcohol intake: never current occupational status: other Travel in the last 8 weeks: None Have you lived/traveled outside US in past 30 days?: No Contact w/someone who lives/traveled outside US past 30 days?: No Exposure to someone with infectious disease in past 14 days?: No Do you have a fever (greater than 100.4 F or 38 C)?: No Have you tested positive for COVID-19: No Exposed to someone with COVID-19 in past 14 days?: No Do you have a sore throat?: Yes Do you have a cough?: No Do you have any weakness?: No Do you have any diarrhea?: No Are you experiencing any unusual bleeding?: No Do you have any muscle aches/pain?: Yes Do you have any abdominal pain?: No Are you experiencing loss of taste or smell?: No ROS Obtained: Yes All systems reviewed & no additional complaints except as documented and Yes Systems reviewed as appropriate & no additional complaints except as documented Constitutional Constitutional: Reports system reviewed and no additional complaints, except as documented, Reports as per HPI, Reports body ache, Reports chills, Reports fever(s) and Reports headache(s) ENT Ears, Nose, Mouth, and Throat: Reports system reviewed and no additional complaints, except as documented, Reports as per HPI, Reports headache(s), Reports nasal congestion and Reports sore throat Cardiovascular Cardiovascular: Reports system reviewed and no additional complaints, except as documented and Reports as per HPI Respiratory Respiratory: Reports system reviewed and no additional complaints, except as documented, Reports as per HPI and Reports cough Gastrointestinal Gastrointestingal: Reports system reviewed and no additional complaints, except as documented and as per HPI Neurologic Neurologic: Reports headache(s) Physical Exam General General appearance: alert and in no apparent distress ENT ENT exam: Present mucous membranes moist Expanded ENT Exam Nose exam: Present other (clear drainage) Throat exam: Present other (mild pharyngeal erythema noted) Respiratory Respiratory exam: Present normal lung sounds bilaterally; Absent respiratory distress or wheezes Cardiovascular Cardiovascular exam: Present regular rate, normal rhythm and normal heart sounds Abdominal Exam Abdominal exam: Present soft and normal bowel sounds; Absent distention or tenderness Neurological Exam Neurological exam: Present alert, oriented X3 and normal gait Medical Decision Making Medical Records Screening: Per USPSTF and CDC recommendations, given the prevalence of disease in our region, it is our hospital?s policy to screen for HIV and viral Hepatitis for all patients aged 18 and over and those with ongoing risk factors. Nicholas Inquiry Pt receiving controlled substance: No Nicholas was queried for this patient: No Vital Signs: 08/14/24 17:40 Temperature 100.2 F H Temperature Source Oral Pulse Rate [Left Brachial] 109 H Respiratory Rate 18 Blood Pressure [Left Arm] 122/85 Blood Pressure Mean [Left Arm] 97 Blood Pressure Source [Left Arm] Automatic Cuff Blood Pressure Position [Left Arm] Sitting 02 Sat by Pulse Oximetry 97 Oxygen Delivery Method Room Air Lab Data Lab results reviewed: Yes I reviewed the patient's lab results.
[2024-08-14 18:01] LABS: UTC Influenza B Antigen Negative (Negative)
[2024-08-14 18:10] VITALS: BP 122/85; PULSE 109; RESP 18; TEMP 37.9; O2SAT 97
== END 2024-08-14 18:12 | disposition home or self-care (01) ==
PROVIDERS: Emergency Provider Nurse Practitioner; PCP Pediatrics
DX: J11.1 Influenza due to unidentified influenza virus with other respiratory manifestations (principal)
CPT/HCPCS: 87804; 87880; 99213; G0381

== ENCOUNTER 2025-03-27 03:09 | Emergency (ER) | payer OTHER, SELFPAY ==
--- OUTSIDE RECORDS SUMMARY | 2025-01-11 09:45 | XMS_ITS | Encounter Summary ---
Author Organization [facility] yste Address [address] [place] [address] Care Team Providers Care Subsystems Engineer Name Role Phone Haresh Lopez MD Primary Care Provider [phone] Encounter Details Date Type Department Care Team (Latest Contact Info) Description 01/11/2025 9:45 AM EDT Outside Facility Service [facility] [address] [place] [address] Shea Kirk MD [address] [place] [address] Solitary kidney, congenital (Primary Dx) Social History Tobacco Use Types Packs/Day Years Used Date Smoking Tobacco: Never Smokeless Tobacco: Never Alcohol Use Standard Drinks/Week Comments Never 0 (1 standard drink = 0.6 oz pur e alcohol) AUDIT-C Answer Date Recorded Q1: How often do you have a drink containing alc ohol? Never 07/01/2020 Average Number of Drinks Not on file 020 Frequency of Binge Drinking Not on file 06/18 Abuse Screen Answer Date Recorded Feels Unsafe at Home or Work/School no 02/03/2024 Feels Threatened by Someone no 01/16 Does Anyone Try to Keep You From Having Contact with Others or Doing Things Outside Your Home? no 02/03/2024 Physical Signs of Abuse Present no 02/03/2024 Sex and Gender Information Value Date Recorded Sex Assigned at Male 12/14/2024 6:49 AM EDT Legal Sex Male 8:46 PM EST Gender Identity Not on file Sexual Orientation Straight 12/14/2024 6: 49 AM EDT documented as of this encounter Plan of Treatment Not on file documented as of this encounter Visit Diagnoses Diagnosis Solitary kidney, congenital- Primary Congenital renal agenesis and dysgenesis documented in this encounter Care Teams Subsystems Engineer Relationship Specialty Start Date End Date Haresh Lopez MD [address] [place] [address] PCP - General Internal Medicine 06/10/23 documented as of this encounter
--- OUTSIDE RECORDS SUMMARY | 2025-03-27 03:18 | XMS_ITS | Encounter Summary ---
[facility] Address [address] [place] [address] Care Team Providers Care Tree Fruit [employer] Nut Crops Farmer Name Role Phone Haresh Lopez MD Primary Care Provider [phone] Encounter Details Date Type Department Care Team (Late st Contact Info) Description 01/12/2025 Results Follow-Up [facility] [address] [place] [address] Shea Kirk MD [address] [place] [address] Social History Tobacco Use Types Packs/Day Years [...] documented as of this encounter Visit Diagnoses Not on filedocumented in this encounter Care Teams Tree Fruit [employer] Nut Crops Farmer Relationship Specialty Start Date End Date Haresh Lopez MD [address] [place] [address] PCP - General Internal Medicine 06/10/23 documented as of this encounter
--- OUTSIDE RECORDS SUMMARY | 2025-03-27 03:18 | XMS_ITS | Encounter Summary ---
[facility] Address [address] [place] [address] Care Team Providers Care Police Reserves Commander Name Role Phone Haresh Lopez MD Primary Care Provider [phone] Reason for Visit * Reason Comments Med Refill Encounter Details Date Type Department Care Team (Late st Contact Info) Description 03/06/2025 Refill [facility] [address] [place] [address] Colton Ortiz, RODNEY [address] [place] [address] Vitamin D deficiency Social History Tobacco Use Types Packs/Day Years [...] as of this encounter Visit Diagnoses Diagnosis Vitamin D deficiency documented in this encounter Care Teams Police Reserves Commander Relationship Specialty Start Date End Date Haresh Lopez MD [address] [place] [address] PCP - General Internal Medicine 06/10/23 documented as of this encounter
--- OUTSIDE RECORDS SUMMARY | 2025-03-27 03:18 | XMS_ITS | Clinical Summary ---
Author Organization [facility] Address [address] [place] [address] Care Team Providers Care Tapper Helper Name Role Phone Haresh Lopez MD Primary Care Provider [phone] Allergies Active Allergy Reactions Criticality Noted Date Comments Aspirin Other (See Comments) 06/10/2023 Only has 1 kidney Medications * This document contains information received from the source organization and may not represent a complete record from that organization. omeprazole (priLOSEC) 40 MG capsule Take 1 capsule by mouth Daily for 360 days. 90 capsule 3 01/12/2025 01/08/20 26 Active atorvastatin (LIPITOR) 20 MG tablet Take 1 tablet by mouth Daily. Active vitamin D (ERGOCALCIFEROL ) 1.25 MG (25065 UT) capsule capsuleIndicati ons:Vitamin D deficiency Take 1 capsule by mouth Every 7 (Seven) Days for 12 doses. 12 capsule 12/16/2024 03/04/20 25 Active Problems Problem Noted Date Diagnosed Date Solitary kidney, congenital 01/11/2025 Dowling's esophagus Overview (12/14/2024): EGD performed in 2023 w/ Dr. Weiss [place], [place], takes OTC omeprazole PRN LUIS (obstructive sleep apnea) Overview (12/14/2024): Wears Cpap consistently Pre-diabetes Overview (12/14/2024): Last A1C-6.0 GERD (gastroesophageal reflux disease) Overview (12/14/2024): Takes omeprazole PRN Encounters Date Type Department Care Team Description 03/06/2025 Refill [facility] [address] [place] [address] Colton Ortiz APRN Vitamin D deficiency 01/24/2025 10:00 AM EDT Office Visit [facility] [address] [place] [address] Shea Kirk MD Obesity, Class II, BMI 35-39.9 (Primary Dx); Dowling's esophagus with dysplasia; Gastroesophageal reflux disease, unspecified whether esophagitis present; LUIS (obstructive sleep apnea); Solitary kidney, congenital; Pre-diabetes 01/24/2025 Travel 01/15/2025 Telephone [facility] [address] [place] [address] Colton Ortiz APRN 01/12/2025 Results Follow-Up [facility] [address] [place] [address] Shea Kirk MD 01/11/2025 9:45 AM EDT Outside Facility Service [facility] [address] [place] [address] Shea Kirk MD Solitary kidney, congenital (Primary Dx) from Last 3 Months Family History Medical History Relation Name Comments Aneurysm Father cause of Liver cancer Maternal Grandfather Pancreatic cancer Maternal Grandfather Colon cancer Mother Diabetes Mother Sleep apnea Mother Relation Name Status Comments Father Maternal Grandfather Maternal Grandmother Mother Alive Paternal Grandfather Paternal Grandmother Social History Tobacco Use Types Packs/Day Years Used Date Smoking Tobacco: Never Smokeless Tobacco: Never Tobacco Cessation:Counseling Given: Not Answered Alcohol Use Standard Drinks/Week Comments Never 0 [...] Orientation Straight 12/14/2024 6: 49 AM EDT Last Filed Vital Signs Vital Sign Reading Time Taken Comments Blood Pressure 118/68 01/24/2025 9:44 AM EDT Pulse 77 01/24/2025 9:44 AM EDT Temperature 36.6 C (97.8 F) 01/24/2025 9:44 AM EDT Respiratory Rate 18 01/24/2025 9:44 AM EDT Oxygen Saturation 97% 01/24/2025 9:44 AM EDT Inhaled Oxygen Concentration - - Weight 119 kg (263 lb 6.4 oz) 01/24/2025 9:44 AM EDT Height 176.5 cm (5' 9.5 ) 01/24/2025 9:44 AM EDT Body Mass Index 38.34 01/24/2025 9:44 AM EDT Plan of Treatment Health Maintenance Due Date Last Done Comments DIABETIC EYE EXAM 1989 DIABETIC FOOT EXAM 1989 URINE MICROALBUMIN-CREATININ E RATIO (uACR) 1989 Hepatitis B (1 of 3 - 19+ 3- dose series) 1998 Pneumococcal Vaccine 0-49 (1 of 2 - PCV) 1998 ANNUAL PHYSICAL 06/17/2021 HEPATITIS C SCREENING 06/17/2021 COLOGUARD 2024 COLON CANCER SCREENING 5 YEA R SIGMOIDOSCOPY [address] CT COLONOGRAPHY 2024 FECAL OCCULT BLOOD TEST 2024 FIT Testing (1 year) 2024 COVID-19 Vaccine ( - season) 03/19/202509/2020 INFLUENZA VACCINE 04/18/2025 HEMOGLOBIN A1C 06/16/2025 12/14/2024 TDAP/TD VACCINES (2 - Td or Tdap) 07/03/2030 020 COLONOSCOPY 07/07/2033 07/07/2023, 04/0 09/2022, 07/30/2020 COLORECTAL CANCER SCREENING 07/07/2033 Procedures Procedure Name Priority Date/Time Associated Diagnosis Comments AMB [facility] SURGICAL/PROCEDURAL REQUEST Routine 01/11/2025 3:29 PM EDT Gastroesophageal reflux disease, unspecified whether esophagitis present TISSUE PATHOLOGY EXAM Routine 01/11/2025 10:59 AM EDT Gastro-esophageal reflux disease with esophagitis, without bleeding HEMOGLOBIN A1C Routine 12/14/2024 11:08 AM EDT Obesity, Class II, BMI 35-39.9 Dyspepsia Fatigue, unspecified type Abnormal blood level of iron Vitamin D deficiency from Last 3 Months or Most Recently Relevant to Health Maintenance Results * External Facility Surgical/Procedural Request (01/11/2025 3:29 PM EDT) us Colton Ortiz APRN [facility] SURGICAL CASE ORDERS EXTER NAL Final Result * Tissue Pathology Exam (01/11/2025 10:59 AM EDT) Case Report Surgical Pathology Report Case: [id number] Authorizing Provider: Shea Kirk MD Collected: 01/11/2025 10:59 AM Ordering Location: [facility] Received: 01/11/2025 12:34 PM LABORATORY Pathologist: Julio Cesar Jamison MD Specimens: 1) - Gastric, Antrum 2) - Esophagus, Distal 01/12/2025 9:42 AM EDT [facility] Clinical Information Gastro-esophageal reflux disease with esophagitis, without bleeding 01/12/2025 9:42 AM EDT [facility] Final Diagnosis 1. GASTRIC ANTRUM BIOPSY: Gastric mucosa with no significant histopathologic change. Negative for intestinal metaplasia, dysplasia or significant inflammation. No Helicobacter pylori-like organisms identified on routine stains. 2. DISTAL ESOPHAGUS AT 40 CM: Squamous mucosa with mild basal layer hyperplasia and slight increase in intraepithelial leukocytes including occasional eosinophils (up to 3 per high-power field). Gastric cardia type mucosa showing minimal chronic gastritis without activity with reactive features. Negative for intestinal metaplasia and dysplasia. Histologic features are suggestive of reflux esophagitis. 01/12/2025 9:42 AM EDT [facility] at 0942 EDT Gross Description 1. Gastric, Antrum. Received in formalin labeled antrum and consists of a melendrez-pink soft tissue fragment measuring 0.7 x 0.2 x 0.1 cm. The specimen is submitted entirely in cassette 1A. 2. Esophagus, Distal. Received in formalin labeled distal esophagus @40 and consists of 2 melendrez-pink soft tissue fragments each measuring 0.5 x 0.2 x 0.1 cm. The specimen is submitted entirely in cassette 2A. MJM 01/12/2025 9:42 AM EDT [facility] Microscopic Description The slides are reviewed and demonstrate histopathologic features supporting the above rendered diagnosis. 01/12/2025 9:42 AM EDT [facility] Tissue Structure of lower third of esophagus / Unknown 01/11/2025 10:59 AM EDT 01/11/2025 12:34 PM EDT Tissue specimen (specimen) Structure of lower third of esophagus / Unknown 01/11/2025 10:59 AM EDT 01/11/2025 12:34 PM EDT Shea Kirk MD PATHOLOGY/CYTOLOGY ORDER STEFAN Final Result [facility]
[address] [place] [address], * (ABNORMAL) Hemoglobin A1c (12/14/2024 11:08 AM EDT) Hemoglobin A1C 6.6(H) 4.8 - 5.6 % [facility] Comment: Prediabetes: 5.7 - 6.4 Diabetes: >6.4 Glycemic control for adults with diabetes: <7.0 Blood 12/14/2024 11:0 8 AM EDT 12/14/2024 Narrative [facility] (AMBULATORY) - 12/15/2024 2:11 PM EDT Performed at: 01 - [facility] [place] [address] [place], [place] [id number] Coke Loader: Ruben Sofia PhD, Phone: [phone] Patient Fasting: N us Colton Ortiz DIRECTOR OF INTERCOLLEGIATE ATHLETICS LAB BLOOD ORDERABLES Final Res ult [facility] (AMBULATORY) [address] [place] [address], [place] [phone] [facility] [address] [place] [address], [place] [phone] from Last 3 Months or Most Recently Relevant to Health Maintenance Insurance [facility] Care Teams Tapper Helper Relationship Specialty Start Date End Date Haresh Lopez MD [address] [place] [address] PCP - General Internal Medicine 06/10/23
[2025-03-27 03:20] VITALS: BP 151/98; PULSE 72; RESP 16; TEMP 36.6; O2SAT 99; BMI 37.3
--- NOTE | 2025-03-27 03:23 | CT_ITS ---
PROCEDURE INFORMATION: Exam: CT Cervical Spine Without Contrast Exam date and time: 03/27/2025 3:35 AM Age: 44 years old Clinical indication: Neck pain; Additional info: Neck pain 2 weeks TECHNIQUE: Imaging protocol: Computed tomography of the cervical spine without contrast. Radiation optimization: All CT scans at this facility use at least one of these dose optimization techniques: automated exposure control; mA and/or kV adjustment per patient size (includes targeted exams where dose is matched to clinical indication); or iterative reconstruction. [facility] wo con 11/10/2018 6:24 PM FINDINGS: Bones/joints: No acute fracture. Normal alignment. There is straightening of cervical lordosis. There is [id number] multilevel degenerative disc disease and spondylosis. There is moderate spinal canal stenosis at C5-C6 and mild to moderate spinal canal stenosis at C4-C5 and C6-C7 secondary to disc osteophyte bulging. Lungs: Lung apices are normal. Soft tissues: Unremarkable. IMPRESSION: 1. Straightening of cervical lordosis. 2. Degenerative disc disease. Multilevel spinal canal stenosis with moderate stenosis at C5-C6.
--- NOTE | 2025-03-27 03:25 | ED_ITS ---
Discharge Plan Disposition Patient Disposition: Home, Self-Care Condition: Good Prescriptions Prescriptions: New methocarbamol 500 mg tablet 1,000 mg PO Q6H PRN (Reason: pain) Qty: 30 0RF No Action omeprazole 20 mg capsule,delayed release(DR/EC) 20 mg PO DAILY cholecalciferol (vitamin D3) 1,250 mcg (50,000 unit) capsule 1,250 mcg PO WEEKLY Ozempic 0.25 mg or 0.5 mg(2 mg/1.5 mL) pen injector 0.25 mg SQ WEEKLY Rx Instructions: for 4 weeks Debrox 6.5 % drops 5 drp otic (ear) DAILY 4 Days Qty: 15 0RF rfcfbzsh-[id number]-MW 3.5-10,000-1 mg/mL-unit/mL-% drops,suspension 4 drp otic (ear) Q8H 10 Days Qty: 10 0RF Referrals Follow up/Referrals: Haresh Lopez [Primary Care Provider, Medical] - See instructions Activity Restrictions/Add. Instructions Additional Instructions/Restrictions: Please follow-up with your primary care provider. Please return to the emergency department if you develop any new or worsening symptoms or become con cerned for your health. Clinical Impressions Clinical Impression: Neck strain Qualifiers: Encounter type: initial encounter Qualified Code(s): S16.1XXA - Strain of muscle, fascia and tendon at neck level, initial encounter Instructions Patient Instructions: DI for Neck Pain Print Language Print Language: Latvian Discharge ED Provider: Harpal Enriquez Adult [facility] General Chief complaint: Neck Pain/Injury Stated complaint: neck pain traveling up back of head Time Seen by Provider: 03/27/25 03:10 Mode of Arrival: Ambulatory Source of Information: Patient Description of Symptoms (Recalled from ER Triage Doc. by RN): Pt reports neck pain for 2 weeks that starts in shoulders and goes up into head. Pt states since 1800 on 03/26/2025 the pain has been worse. Pt denies any vision changes. Pt rates pain 6/10 sharp and constant. History of Present Illness HPI narrative: 44-year-old male without significant past medical history presents for neck pain. He reports it has been happening for the last 2 weeks, comes and goes but has been present for the last several hours. Reports it is worse in the left side but also present on the right. Said the pain radiates up into the base of the scalp, but denies any headache of any kind. Denies any neurologic changes such as numbness or weakness tingling vision changes dizziness etc. Denies any trauma. Related Data Home Medications ?Medication ?Instructions ?Recorded ?Confirmed cholecalciferol (vitamin D3) 1,250 1,250 mcg PO WEEKLY 12/23/24 12/23/24 mcg (50,000 unit) capsule omeprazole 20 mg capsule,delayed 20 mg PO DAILY 12/23/24 release semaglutide 0.25 mg or 0.5 mg (2 0.25 mg SQ WEEKLY 02/0912/23/24 mg/1.5 mL) subcutaneous pen injector (Ozempic) Previous Rx's ?Medication ?Instructions ?Recorded carbamide peroxide 6.5 % ear drops 5 drp otic (ear) DA MEHREEN 4 days #15 12/23/24 (Debrox) mL tbcnjhzt-kryfwggef-qewypujow 3.5 4 drp otic (ear) Q8H 10 days #10 mL 12/23/24 mg-10,000 unit/mL-1 % ear drops,susp methocarbamol 500 mg tablet 1,000 mg (2 x 500 mg) PO Q 6H PRN 03/27/25 pain #30 tabs Allergies Allergy/AdvReac Type Severity Reaction Status Date / Time aspirin Allergy Verified 12/23/24 14:30 [facility] Disclaimer: The information contained in this section may have been updated after the patient was seen, as this information can be updated by other users. Medical History , TRUCKER HAND) CMT (Xxyjbmp-Bcyoa-Imnzj disease) Kidney stone Surgical History , TRUCKER HAND) History of colonoscopy Social History , TRUCKER HAND) Smoking Status: Never smoker alcohol intake: never current occupational status: other Travel in the last 8 weeks?: None Have you lived/traveled outside [place] in past 30 days?: No Contact w/someone who lives/traveled outside [place] past 30 days?: No Exposure to someone with infectious disease in past 14 days?: No Do you have a fever (greater than 100.4 F or 38 C)?: No Have you tested positive for COVID-19?: No Exposed to someone with COVID-19 in past 14 days?: No Do you have a sore throat?: No Do you have a cough?: No Do you have any weakness?: No Do you have any diarrhea?: No Are you experiencing any unusual bleeding?: No Do you have any muscle aches/pain?: Yes Do you have any abdominal pain?: No Are you experiencing loss of taste or smell?: No Other Medical History Have you received the Flu Vaccine for this season: No ROS Obtained: Yes All systems reviewed & no additional complaints except as documented Physical Exam General General appearance: alert and in no apparent distress Head Head exam: atraumatic and normocephalic Eye Eye exam: Present normal appearance, PERRL and EOMI ENT ENT exam: Present normal oropharynx and normal external ear exam Neck Neck exam: Present normal inspection, full ROM and tenderness (Bilateral trapezius tenderness, no midline cervical tenderness) Chest Chest inspection: Present normal inspection and symmetric chest wall rise; Absent tenderness Respiratory Respiratory exam: Present normal lung sounds bilaterally; Absent respiratory distress Cardiovascular Cardiovascular exam: Present regular rate and normal rhythm Abdominal Exam Abdominal exam: Present soft; Absent distention, tenderness or guarding Extremities Exam Extremities exam: Present normal inspection; Absent edema or joint swelling Back Exam Back exam: Present normal inspection; Absent tenderness Neurological Exam Neurological exam: Present alert and oriented X3; Absent motor sensory deficit Psychiatric Psychiatric exam: Present normal affect and normal mood Skin Skin exam: Present warm, dry and normal color Lymphatic Lymphatic Findings: no adenopathy Medical Decision Making Medical Records Medical records reviewed: Yes I reviewed the patient's medical records. Screening: Per USPSTF and CDC recommendations, given the prevalence of disease in our region, it is our hospital?s policy to screen for HIV and viral Hepatitis for all patients aged 18 and over and those with ongoing risk factors. Nicholas Inquiry Pt receiving controlled substance: No Nicholas was queried for this patient: No Vital Signs: 03/27/25 03:20 03/27/25 03:30 03/27/25 03:42 Temperature 97.9 F 97.9 F Temperature Source Oral Oral Pulse Rate 66 72 Pulse Rate [Left] 72 Respiratory Rate 16 18 Blood Pressure 125/86 151/98 H Blood Pressure [Right Arm] 151/98 H Blood Pressure Mean 101 Blood Pressure Mean [Right Arm] 115 Blood Pressure Source Automatic Cuff Blood Pressure Source [Right Arm] Automatic Cuff Blood Pressure Position Sitting 02 Sat by Pulse Oximetry 99 96 Oxygen Delivery Method Room Air Room Air Lab Data Lab results reviewed: Yes I reviewed the patient's lab results. Orders (Tests/Meds): ED MEDICATIONS Discontinued Medications Generic Name Dose Route Start Last Admin Trade Name Lilliam PRN Reason Stop Dose Admin Acetaminophen 1,000 mg 03/27/25 03:23 03/27/25 03:29 Acetaminophen 500mg Tab PO 03/27/25 03:24 1,000 mg ONCE ONE Administration Ketorolac Tromethamine 30 mg 03/27/25 03:23 03/27/25 03:29 Ketorolac 30mg/Ml Vial IM 03/27/25 03:24 30 mg ONCE ONE Administration Lidocaine 1 each 03/27/25 03:23 03/27/25 03:30 Lidocaine 5% Transdermal Patch TD 03/27/25 03:24 1 each ONCE ONE Administration Methocarbamol 1,500 mg 03/27/25 03:23 03/27/25 03:30 Methocarbamol 500mg Tablet PO 03/27/25 03:24 1,500 mg ONCE ONE Administration ORDERS Category Date Time Status CT cervical spine wo con Stat Cat Scan 03/27/25 03:23 Completed Medical Decision Narrative: 44-year-old male without significant past medical history presents for 2 weeks of neck pain, denies headache, denies neurologic changes, denies trauma. History was obtained via interactive discussion with patient, family, chart review. On arrival, patient is [afebrile, hemodynamically stable, satting appropriately, alert, oriented x4, GCS 15], moving all extremities spontaneously. Full physical exam performed and significant for bilateral paraspinal neck pain without midline cervical tenderness Differential includes but is not limited to cervical strain, nerve impingement, spinal stenosis, arthritis. Patient was given Tylenol and Toradol Robaxin and lidocaine patch for symptomatic management and correction of underlying abnormalities. Workup initiated including Noncon CT C-spine.. On re-evaluation, patient [remains afebrile, HD stable.] Imaging independently interpreted by me and significant for no evidence of acute fracture, no severe spinal canal narrowing. See radiology read for full review of final results. Given patient history, exam and workup, patient's presentation most likely represents cervical strain, patient discharged with prescription for muscle relaxers. Return precautions given. Procedures Risk/Benefits of Procedure(s) Were Explained: Yes Critical Care Critical Care Time Critical Care Time: No
[2025-03-27] MEDS: ACETAMINOPHEN 500MG TAB 1000 MG PO (03:29)
[2025-03-27] MEDS: KETOROLAC 30MG/ML VIAL 30 MG IM (03:29)
[2025-03-27 03:30] VITALS: BP 125/86; PULSE 66; O2SAT 96
[2025-03-27] MEDS: LIDOCAINE 5% TRANSDERMAL PATCH 1 EACH TD (03:30)
[2025-03-27] MEDS: METHOCARBAMOL 500MG TABLET 1500 MG PO (03:30)
[2025-03-27 03:42] VITALS: BP 151/98; PULSE 72; RESP 18; TEMP 36.6; O2SAT 98
== END 2025-03-27 04:02 | disposition home or self-care (01) ==
PROVIDERS: Emergency Provider Emergency Medicine; PCP Pediatrics
DX: S16.1XXA Strain of muscle, fascia and tendon at neck level, initial encounter (principal)
CPT/HCPCS: 72125; 96372; 99284; J1885